=== PATIENT | male | born 1975 | race Two or more races ===

== ENCOUNTER 2024-02-06 08:53 | Day surgery (SDC) | payer OTHER ==
[2024-01-24 17:32] LABS: INR 1.08; PROTHROMBIN TIME 11.3 SECONDS (9.0-11.5)
[2024-01-24 17:37] LABS: COL EPI 136 SECONDS (82-175)
[~2024-02-06 08:53] MED LIST: FENOFIBRATE160 MG; ROSUVASTATIN CAL5 MG
[2024-02-06] MEDS ORDERED: METRONIDAZOLE/SODIUM CHLORIDE 500 MG/100 ML PIGGYBACK IV ONE (10:00)
[2024-02-06] MEDS ORDERED: CEFTRIAXONE SODIUM 2,000 MG VIAL ONE (10:00)
[2024-02-06] MEDS ORDERED: BUPIVACAINE HCL/PF 0.5% 30ML ML ONE (11:33)
[2024-02-06] MEDS ORDERED: HEMOSTATIC MATRIX 1 KIT KIT TOP ONE (11:34)
[2024-02-06] MEDS ORDERED: LIDOCAINE HCL 1%/Epi 20ML VIAL IJ ONE (11:34)
[2024-02-06] MEDS ORDERED: POVIDONE-IODINE 118 ML BOTT TOP ONE (11:34)
[2024-02-06] MEDS ORDERED: DIBUCAINE 30 GM TUBE ONE (11:34)
[2024-02-06] MEDS ORDERED: BUPIVACAINE HCL 30 ML VIAL IJ SCH (12:00)
[2024-02-06] MEDS ORDERED: METRONIDAZOLE/SODIUM CHLORIDE 500 MG/100 ML PIGGYBACK IV SCH (12:00)
[2024-02-06] MEDS ORDERED: CEFTRIAXONE SODIUM 2,000 MG VIAL IV SCH (12:00)
[2024-02-06] MEDS ORDERED: LIDOCAINE HCL/EPINEPHRINE 10 ML VIAL IJ SCH (12:00)
[2024-02-06] MEDS ORDERED: POVIDONE-IODINE 118 ML BOTT TOP SCH (12:00)
[2024-02-06] MEDS ORDERED: DIBUCAINE 30 GM TUBE RECTAL SCH (12:15)
[2024-02-06] MEDS ORDERED: HEMOSTATIC MATRIX 1 KIT KIT TOP SCH (12:15)
== END 2024-02-06 17:00 | disposition home or self-care (01) ==
LOC: CIR.AMB 08:53
PROVIDERS: ATTEND Colon & Rectal Surgery
DX: K60.3 Anal fistula (principal); K60.5 Anorectal fistula; Z88.6 Allergy status to analgesic agent

== ENCOUNTER 2024-07-02 06:14 | Day surgery (SDC) | payer OTHER ==
[~2024-07-02 06:14] MED LIST changes: +PROPRANOLOL
[2024-07-02] MEDS ORDERED: METRONIDAZOLE/SODIUM CHLORIDE 500 MG/100 ML PIGGYBACK IV ONE ×2 (08:03→10:15)
[2024-07-02] MEDS ORDERED: CEFTRIAXONE SODIUM 2,000 MG VIAL ONE (08:03)
[2024-07-02] MEDS ORDERED: HEMOSTATIC MATRIX 1 KIT KIT TOP ONE ×2 (09:43→10:15)
[2024-07-02] MEDS ORDERED: DIBUCAINE 30 GM TUBE ONE (09:43)
[2024-07-02] MEDS ORDERED: POVIDONE-IODINE 118 ML BOTT TOP ONE ×2 (09:43→10:15)
[2024-07-02] MEDS ORDERED: DIBUCAINE 30 GM TUBE RECTAL ONE (10:15)
[2024-07-02] MEDS ORDERED: CEFTRIAXONE SODIUM 2,000 MG VIAL IV ONE (10:15)
== END 2024-07-02 15:20 | disposition home or self-care (01) ==
LOC: CIR.AMB 06:14 → ADM 12:30 → CIR.AMB 12:30
PROVIDERS: ATTEND Colon & Rectal Surgery
DX: K60.5 Anorectal fistula (principal); K60.3 Anal fistula